=== PATIENT | male | born 1960 ===

== ENCOUNTER 2016-12-12 13:22 | Outpatient (RCR) | payer MEDICARE | END 2016-12-12 16:00 | disposition home or self-care (01) | LOC: WOUNDCARE 13:22 | PROVIDERS: ATTEND Nurse Practitioner | DX: E11.621 Type 2 diabetes mellitus with foot ulcer (principal); L97.523 Non-pressure chronic ulcer of other part of left foot with necrosis of muscle; I87.2 Venous insufficiency (chronic) (peripheral) | CPT/HCPCS: 99204 ==